=== PATIENT | female | born 1995 | race Caucasian/White ===

== ENCOUNTER 2023-09-13 10:46 | Emergency (ER) | payer MEDICAID, SELFPAY ==
--- NOTE | ~2023-09-13 | XR_ITS ---
EXAMINATION: XR CHEST 2 VIEW CLINICAL INFORMATION: Wheezing and shortness of breath COMPARISON: None TECHNIQUE: PA and lateral views of the chest obtained. FINDINGS: The lungs are clear. There are no pleural effusions. The cardiomediastinal silhouette is normal. XR/XR chest 2V IMPRESSION: No acute cardiopulmonary disease.
[2023-09-13 10:56] VITALS: BP 126/84; BP 133/79; PULSE 106; PULSE 98; RESP 23; TEMP 36.8; O2SAT 98; BMI 33.3
--- NOTE | 2023-09-13 11:21 | ED_ITS ---
HPI - Asthma General Chief Complaint: Asthma Stated Complaint: SOB,PANIC ATTACK,HYPEVENTILATING PER EMS Time Seen by Provider: 09/13/23 10:53 Source: patient and EMS Mode of arrival: EMS Limitations: no limitations History of Present Illness ED Provider: Maria Luz Torres PA-C HPI Narrative: 28-year-old female with a history of anxiety, type 2 diabetes, asthma who presents to the ER from work via EMS for evaluation of SOB, wheezing with reports of an asthma attack and a panic attack that started last night. She reports feeling sob and wheezing last night, so she used her inhaler with good effect. today at work she went outside and started getting more sob. she developed anxiety attack because she couldnt breathe. she feels like she can't take a deep breath. no coughing. her chest feels tight. no fevers. no known sick contacts. she is only on prn albuterol for her asthma. MD complaint: asthma attack , shortness of breath, wheezing and other (panic attack) Onset (ago): day(s) Severity: worse than usual Context: allergen exposure Treatments Prior to Arrival: inhaled bronchodilator Related Data Current Asthma Therapy: inhaled bronchodilator Previous Rx's ?Medication ?Instructions ?Recorded albuterol sulfate 1.25 mg/3 mL 1.25 mg (3 mL) inhalation Q4-6H 09/13/23 solution for nebulization PRN shortness of breath or wheezing #75 mL hydroxyzine HCl 25 mg tablet 25 mg PO BID PRN anxiety #20 tabs 09/13/23 prednisone 20 mg tablet 40 mg (2 x 20 mg) PO DAILY #10 tabs 09/13/23 Allergies Allergy/AdvReac Type Severity Reaction Status Date / Time coconut Allergy Hives Verified 09/13/23 10:59 pineapple Allergy Hives Verified 09/13/23 10:59 Review of Systems Review of Systems: Yes all other systems are reviewed and are negative PMFSH Social History Social History Smoked in Last 30 Days: No Use of substances other than those prescribed or required for medical reasons: Yes Substance Use Type: Marijuana Advance Directives: No Advance Directives Information Provided: No Do you have a plan to hurt others: No Plan Patient : No Physical Exam Vital Signs: Vital Signs: Last Vital Signs Temp 98.2 F 09/13/23 14:59 Pulse 90 09/13/23 14:59 Resp 18 09/13/23 14:59 BP 133/79 09/13/23 14:59 Pulse Ox 98 09/13/23 14:59 O2 Del Method Room Air 09/13/23 14:59 BMI result Body Mass Index 33.3 Appearance: Alert. Oriented X3. tachypneic, anxious Head: normocephalic, atraumatic. Eyes: Pupils equal, round and reactive to light. ENT: Pharynx normal. No tonsillar swelling or exudate. Neck: Normal inspection. Neck supple. CVS: Normal heart rate and rhythm. Pulses normal. Respiratory: mild-moderate respiratory distress w/ increased accessory muscle use. Breath sounds with diffuse expiratory wheezes. Abdomen: Soft and nontender. +BS x4 Skin: Skin warm and dry. Normal skin color. Normal skin turgor. No rashes. Extremities: No lower extremity edema. No joint swelling. Neuro/psych: Oriented X 3. No motor deficit. No sensory deficit. CN II-XII intact. Normal speech and cognition. Medications Administered Discontinued Medications Generic Name Dose Route Start Last Admin Trade Name Freq PRN Reason Stop Dose Admin Albuterol/Ipratropium 3 ml 09/13/23 11:47 09/13/23 11:51 Albuterol/Iprat 2.5/0.5mg 3 Ml Ampul.Neb INHALE 09/13/23 11:48 3 ml ONCE ONE Administration Lorazepam 0.5 mg 09/13/23 11:06 09/13/23 11:57 Lorazepam 2 Mg/Ml Vial IVPUSH 09/13/23 11:07 0.5 mg ONCE ONE Administration Methylprednisolone Sodium Succinate 40 mg 09/13/23 11:06 09/13/23 11:57 Methylprednisolone Sod Succ 40 Mg/Ml Vial IVPUSH 09/13/23 11:07 40 mg ONCE ONE Administration Medical Decision Making Medical Decision Making MDM Narrative: 28-year-old female with history of asthma presents to the ER for evaluation of acute asthma and panic attacks. She was wheezy for EMS and received a nebulizer treatment in route. IV was placed in the left AC. On arrival to the ER she is tachypneic and has accessory muscle use with some expiratory wheezes and decreased breath sounds at her bases. She is saturating well and not hypoxic. Patient was started on ED bronchodilator protocol, IV steroids were given as well as IV Ativan for anxiolytic effect. patient was monitored closely Patient had significant improvement upon re-evaluation. Her chest x-ray did not show any evidence of pneumonia. COVID swab was negative today. at this time comfortable discharge with oral prednisone, albuterol nebs and she is also asking for something for anxiety. Will prescribe p.r.n. hydroxyzine as this is not habit-forming. She was encouraged follow up with her primary care for further management. Return precautions were discussed. Differential Diagnosis Differential Diagnoses: The differential diagnosis associated with the presentation includes acute asthma exacerbation, panic attack, pneumonia, bronchitis, pneumonitis Admission/Observation Consideration of admission/observation: Escalation of care including admission/observation considered Lab Data MDM Lab Attestation statement: I reviewed the patient's lab results. Labs: Lab Results 09/13/23 Range/Units 11:14 COVID-19 (JACQUIE) Negative (Negative) COVID-19 Clin Com See Note Independent Interpretation I performed an independent interpretation of an: Plain X-Ray Interpretation: No focal infiltrate to suggest pneumonia Radiology Impression Discussion of test interpretation with radiology: I have reviewed the radiologist's reading. Radiologist Impression: EXAMINATION: XR CHEST 2 VIEW CLINICAL INFORMATION: Wheezing and shortness of breath COMPARISON: None TECHNIQUE: PA and lateral views of the chest obtained. FINDINGS: The lungs are clear. There are no pleural effusions. The cardiomediastinal silhouette is normal. XR/XR chest 2V IMPRESSION: No acute cardiopulmonary disease Independent Historian Clinical information obtained from an independent historian. History obtained from or confirmed by: EMS Tests considered The following testing was considered but not selected: EKG considered however shortness of breath most likely due to asthma exacerbation and not cardiac etiology Prescription Management I considered prescription management with: Antibiotic and Other ( anxiolytic, bronchodilator) Chronic Conditions Patient?s care impacted by: Other ( asthma, anxiety) Critical Care Time Critical Care Time Critical Care Time: Yes Total Critical Care Time: 31 Attestation: I have personally provided critical care time exclusive of time spent on separately billable procedures. Time includes review of lab data, radiology results, bedside re-evaluation of cardiopulmonary status and mental status after administration of IV benzodiazepines and IV steroids, and monitoring for potential decompensation. Intervention performed as documented. Discharge Plan Discharge Clinical Impression: Asthma with acute exacerbation Qualifiers: Asthma severity: unspecified severity Asthma persistence: unspecified Qualified Code(s): J45.901 - Unspecified asthma with (acute) exacerbation Patient Disposition: Home, Self-Care Instructions: Asthma (DC) Additional Instructions: Your chest x-ray today was normal. You tested negative for COVID-19. Take the prescribed prednisone as directed. Complete the entire course. Use your albuterol nebulizers every 4 hours as needed for shortness of breath and wheezing. Do your best to stay out of the heat and humidity as this can exacerbate your asthma symptoms. Follow-up with your primary care doctor. If you develop new or worsening symptoms call 911 or come back to the ER for further evaluation. Prescriptions: New prednisone 20 mg tablet 40 mg PO DAILY Qty: 10 0RF albuterol sulfate 1.25 mg/3 mL solution for nebulization 1.25 mg inhalation Q4-6H PRN (Reason: shortness of breath or wheezing) Qty: 75 0RF hydroxyzine HCl 25 mg tablet 25 mg PO BID PRN (Reason: anxiety) Qty: 20 0RF Stand Alone Forms: Work/School Release Interventions: ED Discharge Assessment Last Done: 09/13/23 14:59 Discharge Date/Time: 09/13/23 15:00 Print Language: Persian
[2023-09-13 11:33] LABS: COVID-19 Test Negative (Negative); IDNOW Serial# 152EDE1D
--- OUTSIDE RECORDS SUMMARY | 2023-09-13 11:50 | XMS_ITS | Continuity of Care Document ---
Author Organization [facility] ter Address [address] [place] [id number]- Care Team Providers Care Cost Recorder Name Role Phone Arvin Holliday MD Primary Care Physician Encounter [facility] [place] Date(s): 11/01/19 - 11/01/[address] [address]- [facility] Discharge Disposition: A-D/C Home Attending Physician: Fernando Chaudhari MD Admitting Physician: Fernando Chaudhari MD Referring Physician: Not on Staff, Referring MD Allergies, Adverse Reactions, Alerts Substance Reaction Severity Status NKA Active Immunizations Given and Recorded Vaccine Date Status Refusal Reason Gardasil (oldterm) 1 10/28/09 Given Meningococcal Polysaccharide Vaccine 2 10/28/09 Gi doris Influenza Inactive (IM) (oldterm) 3 04/10/07 Given Tet/Diphth/Acel, Pertussis (oldterm) 4 04/10/07 Gi doris 1Admin Note: VIS GIVEN 2Admin Note: VIS GIVEN 3Admin Note: VIS [id number] 4Admin Note: VIS GIVEN 10/06/2005 Medications albuterol 90 mcg/inh inhalation aerosol 2, puffs, Inhalation, 4 times a day, Scheduled / PRN, 17, Gm, 1, 1, 10/31/06 17:46:04, as needed for wheezing, Print ANGELA Number, 65 Start Date: 10/31/06 Status: Ordered albuterol CFC free 90 mcg/inh inhalation aerosol 2 puffs, Inhalation, Every 6 hours, PRN for wheezing, # 8.5 Gm, 1 Refills, Maintenance, Aerosol Start Date: 10/28/09 Status: Ordered Singulair By Mouth, Daily, 0 Refills, Maintenance, 10/28/16 8:32:16 Start Date: 10/28/16 Status: Ordered Problem List Condition Effective Dates Status Health Status Inform ant Asthma(Confirmed) Active Results Radiology Reports * Exam Date Time Procedure Performing Provider Status 11/01/19 1:37 PM Chest 2 Views Frontal and Lat Eken[place]toria r , Jen L; Auth (Verified) Notes: (Chest 2 Views Frontal and Lat) Reason For Exam: Angina RESULT: Chest 2 Views Frontal and Lat Chest 2 Views Frontal and Lat Reason: Angina; Hx of Present Illness: SHORTNESS OF BREATH ASTHMA; COMPARISON: June 23, 2019 FINDINGS: LINES AND TUBES: None. LUNGS AND PLEURA: Clear lungs. Normal pulmonary vascularity. No pleural effusion. No pneumothorax. HEART, MEDIASTINUM AND CASI: Heart is normal in size. Normal mediastinal and hilar contour. BONES AND SOFT TISSUES: No acute abnormality. IMPRESSION: No acute abnormality. WSN: [id number] Ordering Physician: Fernando Chaudhari Dictated By: Steven Hamilton MD Dictated Date/Time: 11/01/19 1:40 pm Reviewed By: Steven Hamilton MD Signed By: Steven Hamilton MD Signed Date/Time: 11/01/19 1:40 pm Transcribed By: SHADIA Transcribed Date/Time: 11/01/19 1:39 pm Vital Signs Most recent to oldest [Reference Range]: 1 2 3 Oxygen Saturation [94-100 %] 95 % (11/01/19 1:47 PM) 96 % (11/01/19 11:38 AM) Pulse Rate [55-90 bpm] 85 bpm (11/01/19 1:47 PM) 88 bpm (11/01/19 11:38 AM) Blood Pressure [90-138/55-84 mm Hg] 119/70mm Hg (11/01/19 1:47 PM) 126/64mm Hg (11/01/19 11:54 AM) 16/64mm Hg *L* (11/01/19 11:38 AM) Respiratory Rate [16-30 br/min] 15 br/min *L* (11/01/19 1:47 PM) 16 br/min (11/01/19 11:38 AM) Temperature [96.8-100.4 DegF] 98.5 DegF (11/01/19 1:47 PM) 98.8 DegF (11/01/19 11:38 AM) Mode of Delivery (Oxygen) Room air (11/01/19 1:47 PM) Room air (11/01/19 11:38 AM) Blood pressure sites Arm, left (11/01/19 1:47 PM) Temperature Route Oral (11/01/19 1:47 PM) Oral (11/01/19 11:38 AM) Social History Social History Type Response Sex Female
--- OUTSIDE RECORDS SUMMARY | 2023-09-13 11:50 | XMS_ITS | Continuity of Care Document ---
Author Organization [facility] ter Address [address] [place] [id number]- Care Team Providers Care Materials Planner Name Role Phone Arvin Holliday MD Primary Care Physician Encounter [facility] [place] Date(s): 06/23/19 - 06/23/[address] [address]- [facility] Encounter Diagnosis Acute asthma exacerbation(Final) - 06/23/19 Marijuana abuse(Final) - 06/23/19 Discharge Disposition: A-D/C Home Attending Physician: Manuel Stock MD Admitting Physician: Manuel Stock MD Referring Physician: Not on Staff, Referring [...] 2Admin Note: VIS GIVEN 3Admin Note: VIS [id number] 4Admin Note: VIS GIVEN 10/06/2005 Medications albuterol [...] Maintenance, Aerosol Start Date: 10/28/09 Status: Ordered amoxicillin 875 mg oral tablet 1 tablet = 875 mg, By Mouth, 2 times a day, for 5 days, # 10 tablet, 0 Refills, Acute 06/28/19 20:01:00 EDT, 06/23/19 20:01:00 EDT, Tablet Start Date: 06/23/19 Stop Date: 06/28/19 Status: Ordered Singulair By Mouth, Daily, 0 Refills, Maintenance, 10/28/16 8:32:16 Start Date: 10/28/16 Status: Ordered Problem List Condition Effective Dates Status Health Status Inform ant Asthma(Confirmed) Active Results Radiology Reports * Exam Date Time Procedure Performing Provider Status 06/23/19 7:12 PM Chest Portable Klarissa Mckoy; Willian h (Verified) Notes: (Chest Portable) Reason For Exam: Cough RESULT: Chest Portable Chest Portable Refer to EMR; Reason: Cough; Clinical Question(s): Pneumonia; Hx of Present Illness: Pt comes in for increasing SOB, hoarse throat, chest tightness. Pt reports that this usually happened when she hasan ashtma attack; Other Objective Findings: AAOx3, speaking complete sentences, hoarse throat, MAEI, chest tightness, no ABD pain, LS diminsied with expir wheezing aking complete sentences, hoarse th COMPARISON: 10/28/2016 and 10/30/2006. FINDINGS: LINES AND TUBES: None. LUNGS AND PLEURA: Questionable subtle hazy opacity in the right lung base. The lungs are otherwise clear. No pleural effusion. No pneumothorax. HEART, MEDIASTINUM AND CASI: Heart is normal in size. Normal mediastinal and hilar contour. BONES AND SOFT TISSUES: No acute abnormality. IMPRESSION: Questionable subtle hazy airspace opacity in the right lung base concerning for airspace disease. Clinical correlation and follow-up is recommended. WSN: [id number] Ordering Physician: Manuel Stock Dictated By: Marta Martinez MD Dictated Date/Time: 06/23/19 7:15 pm Reviewed By: Marta Martinez MD Signed By: Marta Martinez MD Signed Date/Time: 06/23/19 7:15 pm Transcribed By: SHADIA Transcribed Date/Time: 06/23/19 7:14 pm Vital Signs Most recent to oldest [Reference Range]: 1 2 3 Oxygen Saturation [94-100 %] 98 % (06/23/19 8:27 PM) 96 % (06/23/19 7:27 PM) 97 % (06/23/19 5:42 PM) Pulse Rate [55-90 bpm] 81 bpm (06/23/19 8:27 PM) 96 bpm *H* (06/23/19 7:27 PM) 86 bpm (06/23/19 5:42 PM) Blood Pressure [90-138/55-84 mm Hg] 120/80mm Hg (06/23/19 8:27 PM) 124/73mm Hg (06/23/19 7:27 PM) 132/76mm Hg (06/23/19 5:42 PM) Respiratory Rate [16-30 br/min] 20 br/min (06/23/19 8:27 PM) 24 br/min (06/23/19 7:27 PM) 20 br/min (06/23/19 5:16 PM) Temperature [96.8-100.4 DegF] 99.4 DegF (06/23/19 5:16 PM) Mode of Delivery (Oxygen) Room air (06/23/19 8:27 PM) Room air (06/23/19 7:27 PM) Room air (06/23/19 5:42 PM) Blood pressure sites Arm, left (06/23/19 8:27 PM) Arm, left (06/23/19 5:16 PM) Temperature Route Oral (06/23/19 5:16 PM)
[2023-09-13 11:51] VITALS: PULSE 91; RESP 15; O2SAT 100
[2023-09-13] MEDS: Albuterol/Iprat 2.5/0.5MG 3 ML AMPUL.NEB INHALE (11:51)
[2023-09-13] MEDS: LORazepam 2 MG/ML VIAL 0.5 MG IVPUSH (11:57)
[2023-09-13] MEDS: methylPREDNISolone Sod Succ 40 MG/ML VIAL IVPUSH (11:57)
[2023-09-13 14:59] VITALS: BP 133/79; PULSE 90; RESP 18; TEMP 36.8; O2SAT 98
== END 2023-09-13 15:00 | disposition home or self-care (01) ==
PROVIDERS: Physician Assistant; Emergency Provider Emergency Medicine; PCP Student in an Organized Health Care Education/Training Program
DX: J45.901 Unspecified asthma with (acute) exacerbation (principal); R06.02 Shortness of breath; Z11.52 Encounter for screening for COVID-19
CPT/HCPCS: 71046; 87635; 94640; 96374; 96375; 99284; J2060; J2919